=== PATIENT | female | born 1980 | race Caucasian/White ===

== ENCOUNTER 2017-04-04 17:57 | Emergency (ER) | payer OTHER ==
[~2017-04-04] VITALS: Ht 162.6 cm; Wt 65.8 kg
--- NOTE | 2017-04-04 17:57 | NUR ---
Pt was brought to bed 4 and report was given by triage nurse.
[2017-04-04 18:01] VITALS: BP_SYST 129
--- NOTE | 2017-04-04 18:10 | NUR ---
ER at bedside examining patient.
--- NOTE | 2017-04-04 18:20 | NUR ---
Pt states that she has not had a period in 2 years since the IUD was placed, pt started bleeding today. Pt has complaints of pain in her lower abdomen with cramping but took medications at home. No other injuries/complaints per pt or noted.
[2017-04-04 18:30] LABS: BASOPHILS # (AUTO) 0.1 K/uL (0.0-0.2); BASOPHILS % (AUTO) 1.2 % (0.0-2.0); EOSINOPHILS # (AUTO) 0.3 K/uL (0.0-0.4); EOSINOPHILS % (AUTO) 2.8 % (0.0-4.0); HEMATOCRIT 42.6 % (36-48); LYMPHOCYTES # (AUTO) 3.4 K/uL (1.0-5.5); LYMPHOCYTES % (AUTO) 31.4 % (20.5-51.5); MEAN CORPUSCULAR HEMOGLOBIN 29 pg (27-31); MEAN CORPUSCULAR HGB CONC 33 % (32-36); MEAN CORPUSCULAR VOLUME 87 fL (79.0-98.0); MONOCYTES # (AUTO) 0.4 K/uL (0.0-1.0); MONOCYTES % (AUTO) 4.1 % (1.7-9.3); NEUTROPHILS # (AUTO) 6.7 K/uL (1.8-7.7); NEUTROPHILS % (AUTO) 60.5 % (40.0-70.0); PLATELET COUNT (AUTO) 304 K/uL (130-430); RED BLOOD CELL COUNT(AUTO) 4.87 MIL/uL (4.2-6.2); RED CELL DISTRIBUTION WIDTH 14.9 % (9.0-15.0); WHITE BLOOD COUNT (AUTO) 10.9 K/uL (4.8-10.8)
[2017-04-04 18:41] LABS: CALCIUM 8.7 mg/dL (8.4-11.0); CREATININE 0.88 mg/dL (0.55-1.30)
[2017-04-04 18:49] LABS: BILIRUBIN,URINE NEGATIVE (NEGATIVE); BLOOD, URINE 3+ (NEGATIVE); CLARITY/URINE HAZY (CLEAR); GLUCOSE,URINE NEGATIVE (NEGATIVE); KETONES,URINE NEGATIVE (NEGATIVE); LEUKOCYTE ESTERASE ,URINE 1+ (NEGATIVE); NITRITE, URINE NEGATIVE (NEGATIVE); PROTEIN URINE NEGATIVE (NEGATIVE); UROBILINOGEN,URINE 0.2 (0.2-1.0)
--- NOTE | 2017-04-04 19:05 | NUR ---
Recieved report from Ghislaine DECKER. Will assume care at this time. Patient stable. No immediate distress at this time. Spouse at bedside. Will continue to monitor.
[2017-04-04 19:15] LABS: COLOR,URINE YELLOW (YELLOW)
[2017-04-04 19:21] VITALS: BP_SYST 129
--- NOTE | 2017-04-04 19:21 | NUR ---
Patient given written and verbal discharge instructions and verbalizes understanding. ER MD discussed with patient the results and treatment provided. Patient in stable condition. ID arm band removed. Rx of Cipro, Motrin and Benadryl given. Patient educated on pain management and to follow up with PMD. Pain Scale 2/10 tolerable for patient. Opportunity for questions provided and answered.
[2017-04-04 19:28] LABS: BACTERIA,URINE MODERATE /HPF (None Seen)
[2017-04-04 19:29] LABS: MUCUS,URINE 3+ /LPF (None Seen)
[2017-04-04 19:45] LABS: BARBITURATE, URINE NEGATIVE (NEG <=200); BENZODIAZEPINE, URINE NEGATIVE (NEG <=150); CANNABINOID, URINE POSITIVE (NEG <=50); COCAINE, URINE NEGATIVE (NEG <=150); METHAMPHETAMINES SCREEN,URINE POSITIVE (NEG <=500); OPIATE, URINE NEGATIVE (NEG <=100); PHENCYCLIDINE SCREEN,URINE NEGATIVE (NEG <=25); UR TRICYCLIC ANTIDEPRESSANTS NEGATIVE (NEG <=300); URINE AMPHETAMINE POSITIVE (NEG <=500); URINE METHADONE NEGATIVE (NEG <=200); URINE OXYCODONE SCREEN NEGATIVE (NEG <=100); URINE PROPOXYPHENE SCREEN NEGATIVE (NEG <=300)
== END 2017-04-04 19:21 | disposition home or self-care (01) ==
LOC: SED 17:57
DX: M25.531 Pain in right wrist (principal); M25.532 Pain in left wrist; N39.0 Urinary tract infection, site not specified; F41.9 Anxiety disorder, unspecified; F20.9 Schizophrenia, unspecified
CPT/HCPCS: 36415; 71020-TC; 80048; 80307; 81000-TC; 81025; 84484; 84703; 85025; 87086; 93005; 99285